=== PATIENT | female | born 1980 | race American Indian/Alaskan Native ===

== ENCOUNTER 2019-09-24 07:13 | Emergency (ER) | payer SELFPAY ==
--- NOTE | 2019-09-24 08:20 | Emergency Department Report ---
ED Abdominal Pain HPI - General Chief Complaint: Back Pain/Injury Stated Complaint: BACK PAIN Source: patient Mode of arrival: Ambulatory Limitations: No Limitations - History of Present Illness Initial Comments: 38 yo female c/o low back pain and suprapubic pain x 3 days. She denies dysuria, no n/v/d no fever. She denies any falls or injuries no vaginal discharge. She reports hx of Gastritis states this is the same pain she has with when gastritis is acting up. Currently not taking anything for gastritis. She denies drug and alcohol use. MD Complaint: abdominal pain Onset/Timin -: days(s) Location: suprapubic Consistency: constant Worsens With: nothing Associated Symptoms: denies: nausea, vomiting, diarrhea, constipation Treatments Prior to Arrival: NSAIDs - Related Data LMP Date: 09/21/19 (states it was irregular) Previous Rx's Medication Instructions Recorded Last Taken Type Famotidine [Pepcid] 20 mg PO BID 30 Days #60 tablet 09/24/19 Unknown Rx Allergies Allergy/AdvReac Type Severity Reaction Status Date / Time No Known Allergies Allergy Unverified 09/24/19 07:16 ED Review of Systems ROS: Stated complaint: BACK PAIN Other details as noted in HPI Comment: All other systems reviewed and negative Constitutional: denies: chills, fever Gastrointestinal: abdominal pain. denies: nausea, vomiting, constipation Genitourinary: abnormal menses. denies: dysuria, frequency, discharge ED Past Medical Hx - Past Medical History Previous Medical History?: Yes Hx GERD: Yes - Surgical History Past Surgical History?: No - Social History Smoking Status: Current Every Day Smoker Substance Use Type: Alcohol - Medications Home Medications: Home Medications Medication Instructions Recorded Confirmed Last Taken Type Famotidine [Pepcid] 20 mg PO BID 30 Days #60 tablet 09/24/19 Unknown Rx ED Physical Exam - General Limitations: No Limitations General appearance: alert, in no apparent distress - Head Head exam: Present: normal inspection - Eye Eye exam: Present: normal appearance - ENT ENT exam: Present: mucous membranes moist - Respiratory Respiratory exam: Present: normal lung sounds bilaterally. Absent: respiratory distress - Cardiovascular Cardiovascular Exam: Present: regular rate, normal heart sounds - GI/Abdominal GI/Abdominal exam: Present: soft, normal bowel sounds. Absent: distended, tenderness, guarding, rebound - Neurological Exam Neurological exam: Present: alert, oriented X3 - Psychiatric Psychiatric exam: Present: normal affect - Skin Skin exam: Present: warm, dry, intact, normal color ED Course Vital Signs 09/24/19 09/24/19 07:17 10:19 Temperature 98 F Pulse Rate 95 H 82 Respiratory 18 12 Rate Blood Pressure 115/63 Blood Pressure 112/78 [Right] O2 Sat by Pulse 98 98 Oximetry ED Medical Decision Making - Lab Data Result diagrams: 09/24/19 08:36 09/24/19 08:36 - Medical Decision Making Urine negative for infection. Blood work no acute findings. Started pt on Pepcid Critical Care Time: No Critical care attestation.: If time is entered above; I have spent that time in minutes in the direct care of this critically ill patient, excluding procedure time. ED Disposition Clinical Impression: GERD (gastroesophageal reflux disease) Qualifiers: Esophagitis presence: esophagitis presence not specified Qualified Code(s): K21.9 - Gastro-esophageal reflux disease without esophagitis Back pain Qualifiers: Back pain location: low back pain Chronicity: unspecified Back pain laterality: unspecified Sciatica presence: without sciatica Qualified Code(s): M54.5 - Low back pain Disposition: DC-01 TO HOME OR SELFCARE Is pt being admited?: No Does the pt Need Aspirin: No Condition: Stable Instructions: Diet for Ulcers and Gastritis (ED), Gastroesophageal Reflux Disease (ED) Additional Instructions: your blood work and urine test had no acute findings. Your test was negative. Rest increase oral hydration STOP SMOKING CIGARETTES this worsens symptoms of acid reflux. Please follow up with [facility] or your primary care physician Prescriptions: Famotidine [Pepcid] 20 mg PO BID 30 Days #60 tablet Referrals: PRIMARY CARE, [Primary Care Provider] - 3-5 Days
[2019-09-24 09:11] LABS: Alanine Aminotransferase 12 units/L (7-56); Albumin 3.9 g/dL (3.9-5); BUN/Creatinine Ratio 7; Blood Urea Nitrogen 4 mg/dL (7-17); Calcium 8.9 mg/dL (8.4-10.2); Hemolysis Index 26
[2019-09-24 09:16] LABS: Bilirubin,Urine NEG (Negative); Blood,Urine MOD (Negative); Color,Urine Yellow (Yellow); Mucus,Urine 2+ /HPF; Protein,Urine <15 mg/dL mg/dL (Negative)
[2019-09-24 09:23] LABS: HCG Qualitative,Urine Negative (Negative)
[2019-09-24 09:39] LABS: Hematocrit 37.9 % (30.3-42.9); Hemoglobin 12.6 gm/dl (10.1-14.3); Mean Corpuscular HGB Conc 33 % (30-34); Mean Corpuscular Volume 91 fl (79-97); Red Blood Count 4.16 M/mm3 (3.65-5.03)
[2019-09-24 09:40] LABS: Basophils # (Auto) 0.1 K/mm3 (0.0-0.1); Basophils % (Auto) 1.1 % (0.0-1.8); Eosinophils # (Auto) 0.1 K/mm3 (0.0-0.4); Eosinophils % (Auto) 1.6 % (0.0-4.3); Lymphocytes # (Auto) 1.7 K/mm3 (1.2-5.4); Lymphocytes % (Auto) 27.2 % (13.4-35.0); Monocytes # (Auto) 0.5 K/mm3 (0.0-0.8); Monocytes % (Auto) 8.6 % (0.0-7.3); Platelet Count 237 K/mm3 (140-440); Red Cell Distribution Width 14.3 % (13.2-15.2)
[2019-09-24 10:59] VITALS: BP 112/78
== END 2019-09-24 10:19 | disposition home or self-care (01) ==
LOC: ED 07:13
DX: K21.9 Gastro-esophageal reflux disease without esophagitis (principal); M54.5 Low back pain; F17.200 Nicotine dependence, unspecified, uncomplicated
CPT/HCPCS: 36415; 80053; 81001; 81025; 83690; 85025

== ENCOUNTER 2020-04-15 19:44 | Emergency (ER) | payer SELFPAY ==
[2020-04-15] MEDS ORDERED: HYDROmorphone 1 MG/1 ML INJ IV ONE ×3 (20:41→21:50)
[2020-04-15] MEDS ORDERED: SODIUM CHLORIDE 0.9% 500 ML 500 ML IV ONE ×2 (20:41→21:50)
[2020-04-15] MEDS ORDERED: ONDANSETRON 4 MG/2 ML INJ IV ONE (20:41)
--- NOTE | 2020-04-15 20:41 | Emergency Department Report ---
ED General Adult HPI - General Chief complaint: Abdominal Pain Stated complaint: NAUSEA/ABD PAIN PUI?: No Time Seen by Provider: 04/15/20 20:34 Source: patient, EMS ( EMS documentation not available at time of chart dicta tion ), RN notes reviewed Mode of arrival: Stretcher Limitations: Physical Limitation - History of Present Illness Initial comments: The patient is a 39-year-old female. She states that she is not . She states she does not have a primary care doctor. The patient denies fever, cough, loss of taste, loss of smell, and COVID exposure that she is aware of. During the entire history and physical examination, I was trust advisor and escorted by nurse Romina Babcock. The patient presents to the emergency room today with a complaint of abdominal pain, chest pain, nausea and vomiting, and inability to breathe. The patient is in moderate distress at this time, and has difficulty describing the qualitative nature of her symptoms, radiation, exacerbating or relieving factors. However, she indicates that her entire abdomen is hurting her, and indicates nonspecific chest pressure and discomfort. She is not able to tell me if the chest discomfort moved to the back, arms or neck. She indicates the abdominal pain started first. The patient states that she cannot breathe, but reports recent travel to [place], denies oral contraceptive use, and denies dysuria. The patient does not have abdominal surgeries that she is aware of. History at this point of time is limited as this patient is in acute distress, writhing around her stretcher, and actively retching. She is not accompanied by friends or family at this time for additional information or collateral information -: Gradual, hour(s) Location: chest, abdomen Radiation: other Quality: other Consistency: other Improves with: other Worsens with: other Associated Symptoms: other - Related Data Previous Rx's Medication Instructions Recorded Last Taken Type Famotidine [Pepcid] 20 mg PO BID 30 Days #60 tablet 09/24/19 Unknown Rx Acetaminophen [Non-Aspirin Extra 500 mg PO Q6HR PRN #30 tablet 04/15/20 Unknown Rx Strength] Famotidine [Pepcid] 20 mg PO QDAY #30 tablet 04/15/20 Unknown Rx Ibuprofen [Motrin] 400 mg PO Q8H PRN #30 tablet 04/15/20 Unknown Rx Ondansetron [Zofran Odt] 4 mg PO Q8HR PRN #20 tab.rapdis 04/15/20 Unknown Rx Magnesium Oxide [Mag-Ox] 400 mg PO QDAY #30 tablet 04/16/20 Unknown Rx Allergies Allergy/AdvReac Type Severity Reaction Status Date / Time No Known Allergies Allergy Unverified 09/24/19 07:16 ED Review of Systems ROS: Stated complaint: NAUSEA/ABD PAIN Other details as noted in HPI Comment: Unobtainable due to pts medical conditions Constitutional: denies: fever Cardiovascular: chest pain Gastrointestinal: abdominal pain, nausea, vomiting ED Past Medical Hx - Past Medical History Previous Medical History?: Yes Hx GERD: Yes - Social History Smoking Status: Current Every Day Smoker - Medications Home Medications: Home Medications Medication Instructions Recorded Confirmed Last Taken Type Famotidine [Pepcid] 20 mg PO BID 30 Days #60 tablet 09/24/19 Unknown Rx Acetaminophen [Non-Aspirin Extra 500 mg PO Q6HR PRN #30 tablet 04/15/20 Unknown Rx Strength] Famotidine [Pepcid] 20 mg PO QDAY #30 tablet 04/15/20 Unknown Rx Ibuprofen [Motrin] 400 mg PO Q8H PRN #30 tablet 04/15/20 Unknown Rx Ondansetron [Zofran Odt] 4 mg PO Q8HR PRN #20 tab.rapdis 04/15/20 Unknown Rx Magnesium Oxide [Mag-Ox] 400 mg PO QDAY #30 tablet 04/16/20 Unknown Rx ED Physical Exam - General Limitations: Other (Clinical condition) General appearance: anxious, in distress - Head Head exam: Present: atraumatic, normocephalic - Eye Eye exam: Present: normal appearance - ENT ENT exam: Present: normal exam, mucous membranes moist, normal external ear exam - Neck Neck exam: Present: normal inspection, full ROM. Absent: tenderness, meningismus - Respiratory Respiratory exam: Present: normal lung sounds bilaterally. Absent: respiratory distress - Cardiovascular Cardiovascular Exam: Present: regular rate, normal rhythm, normal heart sounds. Absent: bradycardia, tachycardia, irregular rhythm, systolic murmur, diastolic murmur, rubs, gallop - GI/Abdominal GI/Abdominal exam: Present: soft, other (There is a suprapubic mass noted). Absent: distended, tenderness, guarding, rebound, rigid, pulsatile mass - Extremities Exam Extremities exam: Present: normal inspection, full ROM, other (2+ pulses noted in the bilateral upper and lower extremities. There is no palpable cord. negative Homans sign. Muscular compartments are soft. The pelvis is stable.). Absent: pedal edema, calf tenderness - Back Exam Back exam: Present: normal inspection, full ROM. Absent: tenderness, CVA tenderness (R), CVA tenderness (L), paraspinal tenderness, vertebral tenderness - Neurological Exam Neurological exam: Present: alert, other (No facial droop. Tongue midline. Extraocular movements intact bilaterally. Facial sensation intact to light touch in V1, V2, V3 distribution bilaterally. 5 and a 5 strength in 4 extremities. Sensation intact to light touch in 4 extremities.) - Psychiatric Psychiatric exam: Present: anxious - Skin Skin exam: Present: warm, dry, intact, normal color. Absent: rash ED Course Vital Signs 04/15/20 04/15/20 04/15/20 20:57 21:11 21:27 Temperature 98.4 F Pulse Rate 60 Respiratory 20 20 20 Rate Blood Pressure 130/64 [Left] O2 Sat by Pulse 100 Oximetry 04/15/20 04/15/20 04/15/20 21:48 21:54 22:00 Temperature Pulse Rate 58 L Respiratory 20 20 20 Rate Blood Pressure 99/53 [Left] O2 Sat by Pulse 100 99 Oximetry 04/15/20 04/15/20 04/15/20 22:09 22:24 23:00 Temperature Pulse Rate 57 L Respiratory 20 20 20 Rate Blood Pressure 105/52 [Left] O2 Sat by Pulse 99 Oximetry 04/16/20 00:11 Temperature 98.5 F Pulse Rate 53 L Respiratory 20 Rate Blood Pressure 112/59 [Left] O2 Sat by Pulse 100 Oximetry - Reevaluation(s) Reevaluation #1: 04/15/20 21:17 Differential diagnosis, including but not limited to: Obstruction, renal colic, , pancreatitis, biliary colic, pneumonia Assessment and plan: 39-year-old female with a complaint of abdominal pain, chest pain, nausea and vomiting. She is afebrile with reassuring vital signs at this time. She appears to be moderately uncomfortable. She is not currently tachycardic, tachypneic or hypoxic, she denies oral contraceptive use, , surgery, she is PERC negative, and I think it is unlikely that her symptoms are consistent with a pulmonary embolism. We will check basic laboratory studies, rule in/rule out , and attempt to obtain additional history once she is more comfortable. Reevaluation #2: 04/15/20 23:46 The patient is reassessed. She is in no acute distress at this time. Her abdomen is soft and benign, without rebound, guarding or peritoneal signs. No active vomiting. She is noted to be speaking on a cell phone in no acute distress. Discussed significance of findings with the patient. On further review of systems, states that pain is improved, states chest pain is improved, denies urinary symptoms, and reports a distant history of chlamydia. Counseled patient regarding laboratory studies, and fibroids. Offered patient a gynecologic exam, which she declines. She states 1 sexual partner, her , in the past 6 months, and denies vaginal discharge and pelvic pain at this time. Repeat EKG, repeat troponin, urinalysis pending at this time. Patient at low risk for major adverse cardiac event as per heart score. Patient states she is reliable to follow-up with an outpatient clerk of scales, whom she prefers to complete a gynecologic exam, and she can follow-up with an outpatient primary care doctor or communications planner for her complaint of abdominal pain and chest pain. 04/15/20 23:48 the patient does admit to consuming alcohol yesterday. She may have a minor case of pancreatitis, without radiographic corroboration. However, given resolution of symptoms, she is suitable for trial of outpatient management Reevaluation #3: 04/16/20 00:24 EKG unchanged x2. Troponin negative x2. Urinalysis not consistent with acute infectious pathology. Patient drinking apple juice and in no acute distress. ED Medical Decision Making - Lab Data Result diagrams: 04/15/20 20:22 04/15/20 20:22 Vital Signs 04/15/20 04/15/20 20:57 21:11 Temperature 98.4 F Pulse Rate 60 Respiratory 20 20 Rate Blood Pressure 130/64 [Left] O2 Sat by Pulse 100 Oximetry Vital Signs 04/15/20 04/15/20 20:57 21:11 Temperature 98.4 F Pulse Rate 60 Respiratory 20 20 Rate Blood Pressure 130/64 [Left] O2 Sat by Pulse 100 Oximetry Vital Signs 04/15/20 04/15/20 20:57 21:11 Temperature 98.4 F Pulse Rate 60 Respiratory 20 20 Rate Blood Pressure 130/64 [Left] O2 Sat by Pulse 100 Oximetry Lab Results 04/15/20 04/15/20 04/15/20 Range/Units 20:22 20:52 20:52 WBC 7.6 (4.5-11.0) K/mm3 RBC 4.18 (3.65-5.03) M/mm3 Hgb 12.8 (10.1-14.3) gm/dl Hct 38.8 (30.3-42.9) % MCV 93 (79-97) fl MCH 31 (28-32) pg MCHC 33 (30-34) % RDW 13.8 (13.2-15.2) % Plt Count 280 (140-440) K/mm3 Lymph % (Auto) 13.8 (13.4-35.0) % [place] % (Auto) 6.2 (0.0-7.3) % Eos % (Auto) 0.2 (0.0-4.3) % Baso % (Auto) 0.5 (0.0-1.8) % Lymph # 1.0 L (1.2-5.4) K/mm3 [place] # 0.5 (0.0-0.8) K/mm3 Eos # 0.0 (0.0-0.4) K/mm3 Baso # 0.0 (0.0-0.1) K/mm3 Seg Neutrophils % 79.3 H (40.0-70.0) % Seg Neutrophils # 6.0 (1.8-7.7) K/mm3 PT 13.4 (12.2-14.9) Sec. INR 1.04 (0.87-1.13) Magnesium 1.60 L (1.7-2.3) mg/dL Total Creatine Kinase 568 H (30-135) units/L Troponin T < 0.010 (0.00-0.029) ng/mL Lipase 137 H (13-60) units/L HCG, Quant (0-4) mIU/mL 04/15/20 Range/Units 20:52 WBC (4.5-11.0) K/mm3 RBC (3.65-5.03) M/mm3 Hgb (10.1-14.3) gm/dl Hct (30.3-42.9) % MCV (79-97) fl MCH (28-32) pg MCHC (30-34) % RDW (13.2-15.2) % Plt Count (140-440) K/mm3 Lymph % (Auto) (13.4-35.0) % [place] % (Auto) (0.0-7.3) % Eos % (Auto) (0.0-4.3) % Baso % (Auto) (0.0-1.8) % Lymph # (1.2-5.4) K/mm3 [place] # (0.0-0.8) K/mm3 Eos # (0.0-0.4) K/mm3 Baso # (0.0-0.1) K/mm3 Seg Neutrophils % (40.0-70.0) % Seg Neutrophils # (1.8-7.7) K/mm3 PT (12.2-14.9) Sec. INR (0.87-1.13) Magnesium (1.7-2.3) mg/dL Total Creatine Kinase (30-135) units/L Troponin T (0.00-0.029) ng/mL Lipase (13-60) units/L HCG, Quant < 2 (0-4) mIU/mL - EKG Data -: EKG Interpreted by [place] EKG shows normal: sinus rhythm Rate: bradycardia - EKG Data When compared to previous EKG there are: previous EKG unavailable 04/15/20 21:31 Sinus rhythm, bradycardia, 44 bpm, normal axis, normal intervals, high left ventricular voltage. Early repolarization. Abnormal EKG. Not a STEMI. There is no prior for comparison - Radiology Data Radiology results: pending, report reviewed, image reviewed CT abdomen pelvis w con INDICATION: MAIN. Abdominal pain. Pancreatitis TECHNIQUE: All CT scans at this location are performed using CT dose reduction for ALARA by means of automated exposure control. COMPARISON: None available. FINDINGS: Lung bases are clear. Liver and gallbladder are negative. However, there does appear to be a very small amount of fluid around the gallbladder. Spleen and pancreas unremarkable. Kidneys and adrenals are normal. Pelvis Uterus is enlarged and contains several masses, most likely fibroids. A 4 cm cystic-appearing lesion in the left pelvis could represent ovarian cyst or degenerated fibroid. No free fluid. Urinary bladder is negative. Appendix cannot be identified. No skeletal lesions. IMPRESSION: 1. Large fibroid uterus, with 4 cm ovarian cyst versus degenerated fibroid. If clinically indicated, pelvic ultrasound may be helpful. 2. Minimal fluid around the gallbladder, with no cholelithiasis or wall thickening. 3. No evidence of pancreatitis. Signer Name: Dave Harris MD Signed: 04/15/2020 9:49 PM Workstation Name: [id number] Critical care attestation.: If time is entered above; I have spent that time in minutes in the direct care of this critically ill patient, excluding procedure time. ED Disposition Clinical Impression: Chest pain, Abdominal pain, Fibroid, Nausea and vomiting Disposition: - TO HOME OR SELFCARE Is pt being admited?: No Does the pt Need Aspirin: No Condition: Stable Additional Instructions: Minimize consumption of alcohol, or avoid consumption of alcohol altogether. Minimize/avoid consumption of heavy and/or spicy foods. Take the pain medication, nausea medications as needed and directed. Please follow-up with a communications planner within the next 3 to 4 days for your complaint of chest pain. Please follow-up with a primary care doctor within the next 5 days for complaint of abdominal pain, nausea, vomiting and elevated lipase level Please follow-up with a clerk of scales within the next 2 weeks for uterine fibroids and presumed ovarian cyst. Please return to the emergency room right away with new pain, worsening pain, migration of pain, projectile vomiting, change in mental status, confusion, inability to tolerate liquid feeds, new, worsened or different symptoms not present on the initial emergency room evaluation. Do not take metformin medication for the next 2 days, if patient takes this medication. Prescriptions: Magnesium Oxide [Mag-Ox] 400 mg PO QDAY #30 tablet Ibuprofen [Motrin] 400 mg PO Q8H PRN #30 tablet PRN Reason: Pain , Severe (7-10) Acetaminophen [Non-Aspirin Extra Strength] 500 mg PO Q6HR PRN #30 tablet PRN Reason: Pain , Severe (7-10) Famotidine [Pepcid] 20 mg PO QDAY #30 tablet Ondansetron [Zofran Odt] 4 mg PO Q8HR PRN #20 tab.rapdis PRN Reason: Nausea Referrals: SANDY CALHOUN MD [Staff Physician] - 3-5 Days [facility] [Provider Group] - 3-5 Days [facility] [Provider Group] - 3-5 Days
[2020-04-15 21:17] LABS: Basophils % (Auto) 0.5 % (0.0-1.8); Eosinophils % (Auto) 0.2 % (0.0-4.3); Hematocrit 38.8 % (30.3-42.9); Hemoglobin 12.8 gm/dl (10.1-14.3); Lymphocytes % (Auto) 13.8 % (13.4-35.0); Mean Corpuscular HGB Conc 33 % (30-34); Mean Corpuscular Volume 93 fl (79-97); Monocytes # (Auto) 0.5 K/mm3 (0.0-0.8); Monocytes % (Auto) 6.2 % (0.0-7.3); Platelet Count 280 K/mm3 (140-440); Red Blood Count 4.18 M/mm3 (3.65-5.03); Red Cell Distribution Width 13.8 % (13.2-15.2)
[2020-04-15 21:20] LABS: INR 1.04 (0.87-1.13)
[2020-04-15] MEDS ORDERED: MAGNESIUM SULFATE 2 GM/50 ML BAG IV ONE (21:30)
[2020-04-15 21:41] LABS: Alanine Aminotransferase 19 units/L (7-56); Albumin 4.3 g/dL (3.9-5); BUN/Creatinine Ratio 9; Blood Urea Nitrogen 6 mg/dL (7-17); Calcium 9.6 mg/dL (8.4-10.2); Hemolysis Index 19
[2020-04-15] MEDS ORDERED: METOCLOPRAMIDE 10 MG/2 ML INJ IV ONE (21:50)
--- NOTE | 2020-04-15 21:53 | XRay Report ---
ABDOMEN 3 VIEW(S) INDICATION / CLINICAL INFORMATION: Chest pain and abdominal pain. COMPARISON: None available. FINDINGS: TUBES / LINES: None. BOWEL GAS PATTERN/EXTRALUMINAL GAS: No significant abnormality. No free air. ADDITIONAL FINDINGS: Lungs are clear. IMPRESSION: 1. No acute abnormality. Signer Name: Armando Apodaca MD Signed: 04/15/2020 9:48 PM Workstation Name: [id number]
--- NOTE | 2020-04-15 22:53 | Cat Scan Report ---
CT abdomen pelvis w con INDICATION: MAIN. Abdominal pain. Pancreatitis TECHNIQUE: All CT scans at this location are performed using CT dose reduction for ALARA by means of automated e xposure control. COMPARISON: None available. FINDINGS: Lung bases are clear. Liver and gallbladder are negative. However, there does appear to be a very sma ll amount of fluid around the gallbladder. Spleen and pancreas unremarkable. Kidneys and adrenals are normal. Pelvis Uterus is enlarged and contains several masses, most likely fibroids. A 4 cm cystic-appearing lesion in the left pelvis could represent ovarian cyst or degenerated fibroid. No free fluid. Urinary bladde r is negative. Appendix cannot be identified. No skeletal lesions. IMPRESSION: 1. Large fibroid uterus, with 4 cm ovarian cyst versus degenerated fibroid. If clinically indicated, pelvic ultrasound may be helpful. 2. Minimal fluid around the gallbladder, with no cholelithiasis or wall thickening. 3. No evidence of pancreatitis. Signer Name: Dave Harris MD Signed: 04/15/2020 10:49 PM Workstation Name: [id number]
[2020-04-15 23:58] LABS: Bilirubin,Urine NEG (Negative); Blood,Urine NEG (Negative); Color,Urine Yellow (Yellow); Mucus,Urine 1+ /HPF; Protein,Urine <15 mg/dL mg/dL (Negative)
[2020-04-16 00:14] VITALS: BP 112/59
== END 2020-04-16 01:30 | disposition home or self-care (01) ==
LOC: ED 19:44
DX: R07.89 Other chest pain (principal); R11.2 Nausea with vomiting, unspecified; D25.9 Leiomyoma of uterus, unspecified; R10.9 Unspecified abdominal pain; K21.9 Gastro-esophageal reflux disease without esophagitis; F17.200 Nicotine dependence, unspecified, uncomplicated; Z79.1 Long term (current) use of non-steroidal anti-inflammatories (NSAID); Z79.899 Other long term (current) drug therapy
CPT/HCPCS: 36415; 74022; 74177; 80053; 81001; 82550; 83690; 83735; 84484; 84702; 85025; 85610; 93005; 96361; 96365; 96366; 96375; 96376; 99285; J1170; J2405; J2765; J3475; J7040; Q9967

== ENCOUNTER 2021-12-30 23:03 | Emergency (ER) | payer SELFPAY ==
[2021-12-31] MEDS ORDERED: FAMOTIDINE 20 MG TAB PO ONE (03:50)
[2021-12-31] MEDS ORDERED: LIDOCAINE VISCOUS 2% 15 ML ORAL LIQD PO ONE (03:50)
[2021-12-31] MEDS ORDERED: ONDANSETRON 4 MG ODT TAB PO ONE (03:50)
[2021-12-31] MEDS ORDERED: ALUM-MAG HYDROXIDE-SIMETHICONE 200-200-20MG/5ML ORAL LIQD 30 ML PO ONE (03:50)
[2021-12-31] MEDS ORDERED: HYDROcodone/ACETAMINOPHEN 5-325 MG TAB PO ONE (03:50)
--- NOTE | 2021-12-31 04:17 | Emergency Department Report ---
ED General Adult HPI - General Chief complaint: Dental/Oral Stated complaint: BROKEN TOOTH PAIN/STOMACH PAIN/ACID REFLUX Source: patient Mode of arrival: Ambulatory Limitations: No Limitations - History of Present Illness Initial comments: Patient is a 41-year-old -[place] male female with a history of GERD who presents to the ED with complaint of acute onset persistent right maxillary premolar molar toothache with mild swelling, sore throat and a burning sensation characteristic of her chronic GERD symptoms for the last 2 days, worse in the last 8 hours. Patient states that the symptoms were worse after she had dinner at a restaurant about 12 hours ago. Patient denies fever, chills, nausea and vomiting, diarrhea, dizziness, syncope, abdominal pain, chest pain, shortness of breath, traumatic injury or headache. MD Complaint: DENTAL PAIN; Sore throat; GERD complications -: Sudden, days(s) (2) Location: mouth, abdomen Severity scale (0 -10): 6 Quality: aching, sharp Consistency: constant Improves with: none Worsens with: eating Associated Symptoms: denies other symptoms. denies: confusion, chest pain, cough, diaphoresis, fever/chills, headaches, loss of appetite, malaise, nausea/vomiting, rash, seizure, shortness of breath, syncope, weakness Treatments Prior to Arrival: none - Related Data Previous Rx's Medication Instructions Recorded Last Taken Type Acetaminophen [Non-Aspirin Extra 500 mg PO Q6HR PRN #30 tablet 04/15/20 Unknown Rx Strength] Famotidine [Pepcid] 20 mg PO QDAY #30 tablet 04/15/20 Unknown Rx Ibuprofen [Motrin] 400 mg PO Q8H PRN #30 tablet 04/15/20 Unknown Rx Ondansetron [Zofran Odt] 4 mg PO Q8HR PRN #20 tab.rapdis 04/15/20 Unknown Rx Magnesium Oxide [Mag-Ox] 400 mg PO QDAY #30 tablet 04/16/20 Unknown Rx Clindamycin [Clindamycin CAP] 300 mg PO Q8H #30 cap 12/31/21 Unknown Rx Famotidine [Pepcid] 20 mg PO BID 30 Days #60 tablet 12/31/21 Unknown Rx Ibuprofen [Motrin] 600 mg PO Q8H PRN #30 tablet 12/31/21 Unknown Rx traMADoL [Ultram] 50 mg PO Q6HR PRN #10 tablet 12/31/21 Unknown Rx Allergies Allergy/AdvReac Type Severity Reaction Status Date / Time No Known Allergies Allergy Unverified 09/24/19 07:16 ED Review of Systems ROS: Stated complaint: BROKEN TOOTH PAIN/STOMACH PAIN/ACID REFLUX Other details as noted in HPI Constitutional: denies: chills, fever Eyes: denies: eye pain, eye discharge, vision change ENT: throat pain, dental pain (Right maxillary premolar molar toothache). denies: ear pain Respiratory: denies: cough, shortness of breath, wheezing Cardiovascular: denies: chest pain, palpitations Endocrine: no symptoms reported Gastrointestinal: denies: abdominal pain, nausea, vomiting, diarrhea Genitourinary: denies: urgency, dysuria, discharge Musculoskeletal: denies: back pain, joint swelling, arthralgia Skin: denies: rash, lesions Neurological: denies: headache, weakness, paresthesias Psychiatric: denies: anxiety, depression Hematological/Lymphatic: denies: easy bleeding, easy bruising ED Past Medical Hx - Past Medical History Previous Medical History?: Yes Hx GERD: Yes - Surgical History Past Surgical History?: No - Social History Smoking Status: Current Every Day Smoker - Medications Home Medications: Home Medications Medication Instructions Recorded Confirmed Last Taken Type Acetaminophen [Non-Aspirin Extra 500 mg PO Q6HR PRN #30 tablet 04/15/20 Unknown Rx Strength] Famotidine [Pepcid] 20 mg PO QDAY #30 tablet 04/15/20 Unknown Rx Ibuprofen [Motrin] 400 mg PO Q8H PRN #30 tablet 04/15/20 Unknown Rx Ondansetron [Zofran Odt] 4 mg PO Q8HR PRN #20 tab.rapdis 04/15/20 Unknown Rx Magnesium Oxide [Mag-Ox] 400 mg PO QDAY #30 tablet 04/16/20 Unknown Rx Clindamycin [Clindamycin CAP] 300 mg PO Q8H #30 cap 12/31/21 Unknown Rx Famotidine [Pepcid] 20 mg PO BID 30 Days #60 tablet 12/31/21 Unknown Rx Ibuprofen [Motrin] 600 mg PO Q8H PRN #30 tablet 12/31/21 Unknown Rx traMADoL [Ultram] 50 mg PO Q6HR PRN #10 tablet 12/31/21 Unknown Rx ED Physical Exam - General Limitations: No Limitations General appearance: alert, in no apparent distress - Head Head exam: Present: atraumatic, normocephalic, normal inspection - Eye Eye exam: Present: normal appearance, PERRL, EOMI Pupils: Present: normal accommodation - ENT ENT exam: Present: mucous membranes moist, TM's normal bilaterally, normal external ear exam, other (Right maxillary premolar molar teeth tenderness) - Neck Neck exam: Present: normal inspection, full ROM. Absent: tenderness - Respiratory Respiratory exam: Present: normal lung sounds bilaterally. Absent: respiratory distress, wheezes, rales, rhonchi, chest wall tenderness, accessory muscle use, decreased breath sounds, prolonged expiratory - Cardiovascular Cardiovascular Exam: Present: regular rate, normal rhythm, normal heart sounds. Absent: systolic murmur, diastolic murmur, rubs, gallop - GI/Abdominal GI/Abdominal exam: Present: soft, normal bowel sounds. Absent: tenderness, guarding, hyperactive bowel sounds, hypoactive bowel sounds, organomegaly - Extremities Exam Extremities exam: Present: normal inspection, full ROM, normal capillary refill - Back Exam Back exam: Present: normal inspection, full ROM. Absent: tenderness, CVA tenderness (R), CVA tenderness (L), muscle spasm, paraspinal tenderness, vertebral tenderness - Neurological Exam Neurological exam: Present: alert, oriented X3, CN II-XII intact, normal gait, reflexes normal - Psychiatric Psychiatric exam: Present: normal affect, normal mood - Skin Skin exam: Present: warm, dry, intact, normal color. Absent: rash ED Course Vital Signs 12/31/21 02:59 Temperature 98.2 F Pulse Rate 81 Respiratory 15 Rate Blood Pressure 127/43 [Right] O2 Sat by Pulse 100 Oximetry ED Medical Decision Making - Medical Decision Making This is a 41-year-old -F[place] male female with a history of GERD who presents to the ED with complaint of acute onset persistent right maxillary premolar molar toothache with mild swelling, sore throat and a burning sensation characteristic of her chronic GERD symptoms for the last 2 days, worse in the last 8 hours. Patient states that the symptoms were worse after she had dinner at a restaurant about 12 hours ago. In the ED, patient is alert and oriented x3 and is not in any distress. Patient was treated for pain in the ED and on reevaluation, patient's pain is well controlled medication. Patient will discharge home on medications and was advised to follow-up with her primary care physician in 7 to 10 days for reevaluation. Patient is advised return to the ED immediately if symptoms get worse. - Differential Diagnosis GERD; dental abscess; gingivitis; dental caries; Critical care attestation.: If time is entered above; I have spent that time in minutes in the direct care of this critically ill patient, excluding procedure time. ED Disposition Clinical Impression: Dental caries, Dental abscess GERD (gastroesophageal reflux disease) Qualifiers: Esophagitis presence: esophagitis presence not specified Qualified Code(s): K21.9 - Gastro-esophageal reflux disease without esophagitis Disposition: HOME / SELF CARE / HOMELESS Is pt being admited?: No Does the pt Need Aspirin: No Condition: Stable Instructions: Dental Abscess, [id number], Heartburn, [id number], Gastroesophageal Reflux Disease, Adult, [id number] Additional Instructions: Take medication with food, drink plenty of fluids and follow-up with your primary care physician in 7 to 10 days for reevaluation. Consider following up with your dentist in 7 to 10 days as well. Return to the ED immediately if symptoms get worse. Prescriptions: Clindamycin [Clindamycin CAP] 300 mg PO Q8H #30 cap Ibuprofen [Motrin] 600 mg PO Q8H PRN #30 tablet PRN Reason: Pain Famotidine [Pepcid] 20 mg PO BID 30 Days #60 tablet traMADoL [Ultram] 50 mg PO Q6HR PRN #10 tablet PRN Reason: Pain Referrals: [facility] [Outside] - 3-5 Days SANDY CALHOUN MD [Primary Care Provider] - 7-10 days Time of Disposition: 04:20 Print Language: TAJIK
[2021-12-31 05:28] VITALS: BP 128/72
== END 2021-12-31 04:54 | disposition home or self-care (01) ==
LOC: ED 23:03
DX: K04.7 Periapical abscess without sinus (principal); K02.9 Dental caries, unspecified; K21.9 Gastro-esophageal reflux disease without esophagitis; F17.200 Nicotine dependence, unspecified, uncomplicated; Z79.899 Other long term (current) drug therapy
CPT/HCPCS: 99282; J3490; Q0162

== ENCOUNTER 2022-03-25 02:13 | Emergency (ER) | payer SELFPAY ==
[2022-03-25 02:23] VITALS: BP 162/84
== END 2022-03-25 05:00 | disposition left against medical advice (07) ==
LOC: ED 02:13
DX: R11.2 Nausea with vomiting, unspecified (principal); Z53.21 Procedure and treatment not carried out due to patient leaving prior to being seen by health care provider

== ENCOUNTER 2022-03-25 16:24 | Emergency (ER) | payer SELFPAY ==
[2022-03-26] MEDS ORDERED: SODIUM CHLORIDE 0.9% 1000 ML 1,000 ML IV ONE (00:12)
[2022-03-26] MEDS ORDERED: ONDANSETRON 4 MG/2 ML INJ IV ONE (00:12)
[2022-03-26] MEDS ORDERED: FAMOTIDINE 20 MG/2 ML INJ IV ONE (00:12)
--- NOTE | 2022-03-26 00:40 | Emergency Department Report ---
ED Abdominal Pain HPI - General Chief Complaint: Abdominal Pain Stated Complaint: STOMACH PAIN Time Seen by Provider: 03/26/22 00:11 Source: patient Mode of arrival: Ambulatory Limitations: No Limitations - History of Present Illness Initial Comments: Patient 41-year-old female with history of GERD who presents for generalized abdominal pain with bilateral lower for the past 2 days. Patient states nausea no vomiting. Pain described as cramping sharp aching. Last bowel movement 2 hours ago normal per patient. Patient denies melena, patient denies fevers or chills., Patient denies history of bowel obstruction. Patient not currently taken H2 ghazal or PPI for GERD. Patient denies EtOH endorses occasional smoking marijuana. Patient denies symptoms at this time. Current symptoms are exacerbated by movement. Symptoms are relieved by nothing tried. Patient denies fall injury or trauma. MD Complaint: abdominal pain Migration to: no migration - Related Data Previous Rx's Medication Instructions Recorded Last Taken Type Acetaminophen [Non-Aspirin Extra 500 mg PO Q6HR PRN #30 tablet 04/15/20 Unknown Rx Strength] Famotidine [Pepcid] 20 mg PO QDAY #30 tablet 04/15/20 Unknown Rx Ibuprofen [Motrin] 400 mg PO Q8H PRN #30 tablet 04/15/20 Unknown Rx Ondansetron [Zofran Odt] 4 mg PO Q8HR PRN #20 tab.rapdis 04/15/20 Unknown Rx Magnesium Oxide [Mag-Ox] 400 mg PO QDAY #30 tablet 04/16/20 Unknown Rx Clindamycin [Clindamycin CAP] 300 mg PO Q8H #30 cap 12/31/21 Unknown Rx Famotidine [Pepcid] 20 mg PO BID 30 Days #60 tablet 12/31/21 Unknown Rx Ibuprofen [Motrin] 600 mg PO Q8H PRN #30 tablet 12/31/21 Unknown Rx traMADoL [Ultram] 50 mg PO Q6HR PRN #10 tablet 12/31/21 Unknown Rx Dicyclomine [Bentyl] 10 mg PO QID PRN #12 capsule 03/26/22 Unknown Rx Famotidine [Pepcid] 20 mg PO BID #30 tablet 03/26/22 Unknown Rx Ibuprofen [Motrin 800 MG tab] 800 mg PO Q8HR PRN #30 tablet 03/26/22 Unknown Rx Allergies Allergy/AdvReac Type Severity Reaction Status Date / Time No Known Allergies Allergy Unverified 09/24/19 07:16 ED Review of Systems ROS: Stated complaint: STOMACH PAIN Other details as noted in HPI Constitutional: denies: chills, fever Eyes: denies: eye pain, eye discharge, vision change ENT: denies: ear pain, throat pain Respiratory: denies: cough, shortness of breath, wheezing Cardiovascular: denies: chest pain, palpitations Endocrine: no symptoms reported Gastrointestinal: abdominal pain, nausea. denies: diarrhea, constipation, hematemesis, melena Genitourinary: denies: urgency, dysuria, frequency, hematuria, discharge, d yspareunia Musculoskeletal: denies: back pain, joint swelling, arthralgia Skin: denies: rash, lesions Neurological: denies: headache, weakness, paresthesias, vertigo Psychiatric: denies: anxiety, depression Hematological/Lymphatic: denies: easy bleeding, easy bruising ED Past Medical Hx - Past Medical History Hx GERD: Yes - Social History Smoking Status: Never Smoker - Medications Home Medications: Home Medications Medication Instructions Recorded Confirmed Last Taken Type Acetaminophen [Non-Aspirin Extra 500 mg PO Q6HR PRN #30 tablet 04/15/20 Unknown Rx Strength] Famotidine [Pepcid] 20 mg PO QDAY #30 tablet 04/15/20 Unknown Rx Ibuprofen [Motrin] 400 mg PO Q8H PRN #30 tablet 04/15/20 Unknown Rx Ondansetron [Zofran Odt] 4 mg PO Q8HR PRN #20 tab.rapdis 04/15/20 Unknown Rx Magnesium Oxide [Mag-Ox] 400 mg PO QDAY #30 tablet 04/16/20 Unknown Rx Clindamycin [Clindamycin CAP] 300 mg PO Q8H #30 cap 12/31/21 Unknown Rx Famotidine [Pepcid] 20 mg PO BID 30 Days #60 tablet 12/31/21 Unknown Rx Ibuprofen [Motrin] 600 mg PO Q8H PRN #30 tablet 12/31/21 Unknown Rx traMADoL [Ultram] 50 mg PO Q6HR PRN #10 tablet 12/31/21 Unknown Rx Dicyclomine [Bentyl] 10 mg PO QID PRN #12 capsule 03/26/22 Unknown Rx Famotidine [Pepcid] 20 mg PO BID #30 tablet 03/26/22 Unknown Rx Ibuprofen [Motrin 800 MG tab] 800 mg PO Q8HR PRN #30 tablet 03/26/22 Unknown Rx ED Physical Exam - General Limitations: No Limitations General appearance: alert, in no apparent distress - Head Head exam: Present: normocephalic, normal inspection - Eye Eye exam: Present: normal appearance, PERRL, EOMI. Absent: conjunctival injection, nystagmus Pupils: Present: normal accommodation - ENT ENT exam: Present: normal exam, normal orophraynx - Neck Neck exam: Present: normal inspection, full ROM. Absent: tenderness, lymphadenopathy - Respiratory Respiratory exam: Present: normal lung sounds bilaterally. Absent: respiratory distress, wheezes, stridor, chest wall tenderness - Cardiovascular Cardiovascular Exam: Present: regular rate, normal rhythm, normal heart sounds. Absent: systolic murmur, diastolic murmur, rubs, gallop - GI/Abdominal GI/Abdominal exam: Present: soft, normal bowel sounds. Absent: distended, tenderness, organomegaly, bruit - Rectal Rectal exam: Present: deferred - External exam: Present: other (Deferred) - Extremities Exam Extremities exam: Present: normal inspection, full ROM, normal capillary refill. Absent: tenderness, pedal edema, joint swelling - Back Exam Back exam: Present: normal inspection, CVA tenderness (L). Absent: full ROM, CVA tenderness (R) - Neurological Exam Neurological exam: Present: alert, oriented X3, CN II-XII intact, normal gait, reflexes normal - Psychiatric Psychiatric exam: Present: normal affect, normal mood - Skin Skin exam: Present: warm, dry, intact, normal color. Absent: rash ED Course Vital Signs 03/25/22 17:30 Temperature 98.3 F Pulse Rate 89 Respiratory 12 Rate Blood Pressure 115/78 O2 Sat by Pulse 100 Oximetry ED Medical Decision Making - Lab Data Result diagrams: 03/26/22 00:24 03/26/22 00:24 Labs 03/26/22 03/26/22 00:24 00:24 WBC 7.1 RBC 4.64 Hgb 14.0 Hct 40.2 MCV 87 MCH 30 MCHC 35 H RDW 14.2 Plt Count 259 Lymph % (Auto) 19.0 [place] % (Auto) 9.7 H Eos % (Auto) 0.0 Baso % (Auto) 0.4 Lymph # (Auto) 1.3 [place] # (Auto) 0.7 Eos # (Auto) 0.0 Baso # (Auto) 0.0 Seg Neutrophils % 70.9 H Seg Neutrophils # 5.0 Sodium 134 L Potassium 4.1 Chloride 94.5 L Carbon Dioxide 28 Anion Gap 16 BUN 12 Creatinine 0.7 Estimated GFR > 60 BUN/Creatinine Ratio 17 Glucose 119 H Calcium 10.1 Total Bilirubin 1.20 AST 27 ALT 25 Alkaline Phosphatase 77 Total Protein 7.7 Albumin 4.6 Albumin/Globulin Ratio 1.5 - Medical Decision Making Abdeominal cramping symptoms improved with medications given in ED plan DC to home, NSAIDs as needed pain. Continue to hydrate as directed. Follow-up with your primary care doctor in 2 to 3 days. Return to emergency department if symptoms worsen. Critical care attestation.: If time is entered above; I have spent that time in minutes in the direct care of this critically ill patient, excluding procedure time. ED Disposition Clinical Impression: Dysmenorrhea Disposition: HOME / SELF CARE / HOMELESS Is pt being admited?: No Does the pt Need Aspirin: No Condition: Stable Instructions: Abdominal Pain (ED), Dysmenorrhea, [id number] Additional Instructions: Take medications as prescribed, follow up with your primary care doctor in 2 to 3 days. Return to emergency department should symptoms worsen. Prescriptions: Dicyclomine [Bentyl] 10 mg PO QID PRN #12 capsule PRN Reason: abdominal spasm Ibuprofen [Motrin 800 MG tab] 800 mg PO Q8HR PRN #30 tablet PRN Reason: pain Famotidine [Pepcid] 20 mg PO BID #30 tablet Referrals: SERA HAWKINS MD [Staff Physician] - 3-5 Days Forms: Work/School Release Form(ED) Time of Disposition: 02:27
[2022-03-26 01:03] LABS: Basophils % (Auto) 0.4 % (0.0-1.8); Hematocrit 40.2 % (30.3-42.9); Lymphocytes # (Auto) 1.3 K/mm3 (1.2-5.4); Mean Corpuscular HGB Conc 35 % (30-34); Mean Corpuscular Volume 87 fl (79-97); Monocytes # (Auto) 0.7 K/mm3 (0.0-0.8); Monocytes % (Auto) 9.7 % (0.0-7.3); Platelet Count 259 K/mm3 (140-440); Red Blood Count 4.64 M/mm3 (3.65-5.03); Red Cell Distribution Width 14.2 % (13.2-15.2)
[2022-03-26 01:05] LABS: Alanine Aminotransferase 25 units/L (7-56); Albumin 4.6 g/dL (3.9-5); Blood Urea Nitrogen 12 mg/dL (7-17); Calcium 10.1 mg/dL (8.4-10.2); Hemolysis Index 9
[2022-03-26 01:08] LABS: BUN/Creatinine Ratio 17
[2022-03-26] MEDS ORDERED: IBUPROFEN 800 MG TAB PO ONE (02:16)
[2022-03-26 02:44] VITALS: BP 119/84
== END 2022-03-26 02:43 | disposition home or self-care (01) ==
LOC: ED 16:24
DX: N94.6 Dysmenorrhea, unspecified (principal); Z79.899 Other long term (current) drug therapy
CPT/HCPCS: 36415; 80053; 85025; 96361; 96374; 96375; 99283; J2405; J3490; J7030